=== PATIENT | female | born 1960 | race Caucasian/White ===

== ENCOUNTER 2020-11-16 20:04 | Emergency (ER) | payer MEDICARE, MEDICAID ==
[~2020-11-16] VITALS: Ht 165.1 cm; Wt 90.0 kg
[2020-11-16] MEDS ORDERED: ACETAMINOPHEN 325MG TABLET PO ONE (22:15)
[2020-11-17] MEDS ORDERED: TRAMADOL 50MG TABLET PO ONE (00:15)
[2020-11-17 02:12] VITALS: BP 166/77
== END 2020-11-17 02:50 | disposition home or self-care (01) ==
LOC: ER 20:04
DX: M79.661 Pain in right lower leg (principal); I10 Essential (primary) hypertension; M79.7 Fibromyalgia; F32.9 Major depressive disorder, single episode, unspecified; E11.9 Type 2 diabetes mellitus without complications
CPT/HCPCS: 93005; 93971; 99284

== ENCOUNTER 2023-01-06 14:46 | Emergency (ER) | payer MEDICARE, MEDICAID ==
[~2023-01-06] VITALS: Ht 152.4 cm; Wt 93.0 kg
[2023-01-06 14:56] VITALS: BP 140/92; PULSE 78; RESP 18; TEMP 98.1; O2SAT 95
[2023-01-06 15:50] LABS: BASOPHILS % 0.4 % (0.0-2.0); EOSINOPHILS % 0.5 % (0.0-5.0); HEMOGLOBIN. 10.1 g/dL (12.0-16.0); LYMPHOCYTES % 18.5 % (20.0-50.0); MEAN CORPUSCULAR HEMOGLOBIN 24.7 pg (28.0-32.0); MEAN CORPUSCULAR VOLUME 78.1 fL (81.0-99.0); MEAN PLATELET VOLUME 8.9 fl (7.4-10.4); MONOCYTES % 9.5 % (2.0-8.0); NEUTROPHILS % 71.1 % (40.0-76.0); PLATELET 282 x1000/uL (130-400); RED BLOOD CELL COUNT 4.09 mill/uL (4.2-5.4); RED CELL DISTRIBUTION WIDTH 21.4 % (11.6-14.6)
[2023-01-06 15:58] LABS: CLARITY URINE CLEAR (CLEAR); COLOR URINE YELLOW (YELLOW); KETONES URINE NEGATIVE (NEGATIVE); LEUKOCYTE ESTERASE URINE NEGATIVE (NEGATIVE); NITRITE URINE NEGATIVE (NEGATIVE); OCCULT BLOOD URINE NEGATIVE (NEGATIVE); PROTEIN URINE TRACE (NEGATIVE); SPECIFIC GRAVITY URINE 1.014 (1.005-1.030); UROBILINOGEN URINE 0.2 E.U./dL (0.2-1.0)
[2023-01-06 15:58] LABS: CHLORIDE 105 mEq/L (98-107)
[2023-01-06] MEDS ORDERED: SODIUM CHLORIDE 0.9% 1,000 ML IV ONE (16:30)
[2023-01-06 17:24] LABS: D-DIMER 0.76 mg/L FEU (<0.50); INR 0.9; PARTIAL THROMBOPLASTIN TIME 22.6 sec (23.4-31.0); PROTHROMBIN TIME 9.8 sec (9.6-11.0)
[2023-01-06] MEDS ORDERED: IOHEXOL-350 100 ML BOTTLE ONE (18:43)
[2023-01-06] MEDS ORDERED: ENOXAPARIN 100MG/ML SYR SUBCUT ONE (19:15)
== END 2023-01-06 20:18 | disposition left against medical advice (07) ==
LOC: ER 14:46 → CANBEDREQ 01-07 01:19
DX: R06.02 Shortness of breath (principal); R06.09 Other forms of dyspnea; F32.9 Major depressive disorder, single episode, unspecified; E11.9 Type 2 diabetes mellitus without complications; I10 Essential (primary) hypertension; M79.7 Fibromyalgia
CPT/HCPCS: 99285; 93970; 96360; 70450; 71045; 80053; 81003; 83880; 85025; 85379; 85610; 85730; 87086; 84484; 36415; 93005; Q9967; J7030